=== PATIENT | female | born 1930 | race Caucasian/White ===

== ENCOUNTER 2018-05-04 07:36 | Inpatient (IN) | payer OTHER ==
[~2018-05-04] VITALS: Ht 152.4 cm; Wt 64.0 kg
[~2018-05-04 07:36] MED LIST: AMOCLA875 PO
[2018-05-04] MEDS ORDERED: SYNTHROID25 MCG PO (08:02)
[2018-05-04] MEDS ORDERED: FURO40 PO (08:02)
[2018-05-04] MEDS ORDERED: K-Dur20 MEQ PO (08:02)
[2018-05-04] MEDS ORDERED: DONE10 PO (08:03)
[2018-05-04] MEDS ORDERED: BUPR150ER PO (08:03)
[2018-05-04] MEDS ORDERED: CHOL10002 PO (08:03)
[2018-05-04] MEDS ORDERED: Lopressor 25 mg25 MG PO (08:03)
[2018-05-04] MEDS ORDERED: WARF2.5 PO (08:03)
[2018-05-04] MEDS ORDERED: METO50 PO (08:04)
[2018-05-04 08:37] LABS: BASOPHILS ABSOLUTE AUTO 0.02 K/mm3 (0.00-0.23); BASOPHILS PERCENT AUTO 0 % (0-2); EOSINOPHILS PERCENT AUTO 0 % (0-6); Hematocrit 41.2 % (33.0-51.0); Hemoglobin 12.7 g/dL (11.5-16.0); IMMATURE GRAN ABSOLUTE AUTO 0.04 K/mm3 (0.00-0.10); IMMATURE GRAN PERCENT AUTO 1 % (0-1); LYMPHOCYTES ABSOLUTE AUTO 0.36 K/mm3 (0.84-5.20); LYMPHOCYTES PERCENT AUTO 5 % (21-46); MONOCYTES ABSOLUTE AUTO 1.59 K/mm3 (0.16-1.47); MONOCYTES PERCENT AUTO 21 % (4-13); Mean Corpuscular HGB 31.3 pg (26.0-34.0); Mean Corpuscular HGB Conc 30.8 g/dL (31.5-36.5); Mean Corpuscular Volume 102 fL (80-100); Mean Platelet Volume 10.2 fL (9.1-12.4); NEUTROPHILS ABSOLUTE AUTO 5.71 K/mm3 (1.96-9.15); NEUTROPHILS PERCENT AUTO 74 % (41-73); Platelet Count 202 K/mm3 (150-400); RDW Coefficient Variation 18.1 % (11.7-14.2); RDW Standard Deviation 68.7 fL (35.1-46.3); Red Blood Cell Count 4.06 M/mm3 (3.80-5.20); White Blood Cell Count 7.72 K/mm3 (4.00-11.30)
[2018-05-04 09:01] LABS: Albumin, Blood 3.7 g/dL (3.4-5.0); Albumin/Globulin Ratio 1.1 (0.8-1.8); Bun/Creatinine Ratio 22.6 (12.0-20.0); Creatinine, Blood 0.97 mg/dL (0.40-1.00); Globulin, Blood 3.4 g/dL (2.2-4.0); Potassium, Blood 3.4 mmol/L (3.5-5.5); Total Protein, Blood 7.1 g/dL (6.4-8.2)
[2018-05-04 12:27] LABS: International Normalized Ratio 1.75; Prothrombin Time Results 17.6 Sec (9.7-11.5)
[2018-05-04] MEDS ORDERED: LANOXIN125 MCG PO (14:46)
--- NOTE | 2018-05-04 19:31 | NUR ---
SHIFT SUMMARY PT A NEW ADMISSION THIS AFTERNOON. PT IS ORIENTED TO SELF ONLY. PT PLEASANT AND COOPRATIVE, FOLLLOW DIRECTION. NO COMPLAINTS OF PAIN. SHORTNESS OF BREATH WITH EXERTION UP TO BSC. PT IS VERY COARSE. IV LASIX GIVEN THIS EVENING PER ORDERS. NO ACUTE DISTRESS. FAMILY AT BEDSIDE. REPORT GIVEN TO DARREN RN. BED ALARM ON FOR SAFETY.
--- NOTE | 2018-05-05 04:55 | NUR ---
NOC SHIFT SUMMARY PT HAS BEEN PLEASANT AND COOPERATIVE WITH CARE. SHE IS ORIENTED TO SELF AND SON ONLY. SHE HAS SPENT MOST OF THE NIGHT IN BED. HAS BEEN INCONTINENT OF URINE AND NEEDED ATTENDS CHANGE. LUNGS SOUND COARSE THROUGHOUT BUT PT APPEARS IN NO ACUTE DISTREDD AND IS ABLE TO SPEAK IN SENTENCES. HAS HAD PRODUCTIVE COUGH. WILL CONTINUE TO MONITOR.
[2018-05-05 05:19] LABS: Hemoglobin 12.6 g/dL (11.5-16.0); Mean Corpuscular HGB 32.2 pg (26.0-34.0); Mean Corpuscular HGB Conc 30.7 g/dL (31.5-36.5); Mean Platelet Volume 10.1 fL (9.1-12.4); Platelet Count 191 K/mm3 (150-400); RDW Coefficient Variation 18.1 % (11.7-14.2); RDW Standard Deviation 69.4 fL (35.1-46.3); Red Blood Cell Count 3.91 M/mm3 (3.80-5.20); White Blood Cell Count 8.19 K/mm3 (4.00-11.30)
[2018-05-05 05:22] LABS: Mean Corpuscular Volume 105 fL (80-100)
[2018-05-05 05:45] LABS: Bun/Creatinine Ratio 22.9 (12.0-20.0); Calcium, Blood 8.8 mg/dL (8.5-10.1); Creatinine, Blood 1.05 mg/dL (0.40-1.00); Potassium, Blood 3.4 mmol/L (3.5-5.5); Troponin I 0.093 ng/mL (0.000-0.040)
[2018-05-05 05:46] LABS: International Normalized Ratio 1.85; Prothrombin Time Results 18.5 Sec (9.7-11.5)
--- NOTE | 2018-05-05 12:03 | NUR ---
Spiritual care visit conducted. Patient was asleep with four family members bedside. I introduced myself and and the family welcomed me. I facilitated a patient/family life review, explored patient's belief system and reinforced helpful attitudes and practices. Family responded well and thanked me for the visit.
--- NOTE | 2018-05-05 16:18 | NUR ---
1433 CRITICAL PTT RECIEVED. 1434 PTT REPORTED TO Samantha BAY IN PHARMACY.
--- NOTE | 2018-05-05 17:18 | NUR ---
SHIFT SUMMARY. ALERT, ORIENTATED TO SELF AND FAMILY. PT IS PLEASANT AND COOPERATIVE, ONE ASSIST TO CHAIR. INCONTINENT. PT DENIES N/V, SOB, AND PAIN. POOR PO INTAKE EVEN WITH ENCOURAGE BY STAFF AND FAMILY. HEPARIN DRIP D/C'D TODAY. NO OTHER CHANGES.
--- NOTE | 2018-05-06 05:20 | NUR ---
Rn summary: Patient is oriented x2 with history of dementia. Son has been at bedside all shift. Pt has a murmur. Pt lungs are course with insp/exp wheezes and expiratory crackles in bases. Pt is on O2 at 2 liters. Lasix 40mg given IV at 1999 and has voided 2 med incontinent voids. Pt was given her meds whole in applesauce but she tends to chew them even though she is reminded not to. Pt has been repositioned. She has rested fairly well. Son has call light as pt is not able to use it. Bed alarm is on for safety.
[2018-05-06 05:42] LABS: International Normalized Ratio 2.6; Prothrombin Time Results 25.3 Sec (9.7-11.5)
[2018-05-06 12:39] LABS: Bun/Creatinine Ratio 22.4 (12.0-20.0); Calcium, Blood 8.3 mg/dL (8.5-10.1); Creatinine, Blood 1.07 mg/dL (0.40-1.00)
--- NOTE | 2018-05-06 16:46 | NUR ---
PATIENT ORIENTED TO SELF AND FAMILY. UP WITH 1 ASSIST TO CHAIR FOR MEALS THIS SHFT. VOIDING IN BSC WITH SOME INCONTINENCE. VSS. MAINTAINING SATS ON 2LO2. LUNGS COARSE WITH WHEEZES THROUGHOUT. SKIN INTACT. FALL PRECAUTIONS PER UNIT PROTOCOL. DENIES ANY PAIN. TAKES PILLS WHOLE WITH APPLESAUCE. TOLERATING REGULAR DIET.
--- NOTE | 2018-05-07 05:25 | NUR ---
SHIFT SUMMARY NO CHANGES TO REPORT THIS SHIFT. LUNGS REMAIN VERY COURSE WITH WHEEZES T/O. PT PLESANTLY CONFUSED. KNOWS SELF AND FAMILY. UNABLE TO TELL ME THE DATE OR WHERE SHE WAS. SHE DENIES NEEDS T/O THEN NIGHT. PT SON REMAINS AT BEDSIDE T/O THE NIGHT. ASSESSMENT UNCHANGED. WILL CONTINUE TO MONITOR AND REPORT TO ONCOMING RN.
[2018-05-07 05:29] LABS: International Normalized Ratio 3.36; Prothrombin Time Results 31.9 Sec (9.7-11.5)
[2018-05-07 05:36] LABS: Bun/Creatinine Ratio 29.5 (12.0-20.0); Calcium, Blood 8.7 mg/dL (8.5-10.1); Creatinine, Blood 0.98 mg/dL (0.40-1.00); Potassium, Blood 4.3 mmol/L (3.5-5.5)
--- NOTE | 2018-05-07 18:15 | NUR ---
NO ACUTE CHANGES THIS SHIFT, UP WITH SBA TO CHAIR. TOLERATING REGULAR DIET. VSS THIS SHIFT. TAKES PILLS WHOLE WITH APPLESAUCE. FAMILY AT BEDSIDE THROUGHOUT THE SHIFT. FALL PRECAUTIONS PER UNIT PROTOCOL. 2L O2 TO MAINTAIN SATS. ORIENTED TO SELF AND FAMILY ONLY, ABLE TO FOLLOW SIMPLE COMMANDS. CONT/INCONTINENT, WEARING ATTENDS.
--- NOTE | 2018-05-08 04:12 | NUR ---
SHIFT SUMMARY NO ACUTE CHANGES. LUNGS REMAIN VERY COURSE AND WHEEZY T/O. PT DENIES PAIN, OR SOB AT REST. HOWEVER, GETS VERY SOB WITH ANY EXERTION. PT HAS BEEN UP AND OUT OF BED AND HAS DONE WELL USING THE FWW TO AND FROM THE BATHROOM WITH 1 PA. PT SON AT BEDSIDE T/O THE NIGHT. ASSESSMENT UNCHANGED. WILL CONTINUE TO MONITOR AND REPORT TO ONCOMING RN.
[2018-05-08 05:44] LABS: International Normalized Ratio 2.85; Prothrombin Time Results 27.5 Sec (9.7-11.5)
--- NOTE | 2018-05-08 09:58 | NUR ---
permission to provide care Student nurse Becca Cruz received permission to care on 05-08-18 to provide care on 05-09-18 Becca Cruz
--- NOTE | 2018-05-08 13:37 | NUR ---
Spiritual care visit conducted. Patient was sitting in a chair eating lunch when I entered the room. Patient is known to me from a prior visit. I talked with patient about her health, her yung and her family. I reinfornced helpful attitudes and practices, explored sources of dignity and provided prayer. Patient and family that were present bedside responded well to all interventions. Patient expressed gratitude for my visit and showed signs of an elevated mood.
--- NOTE | 2018-05-08 17:25 | NUR ---
SHIFT SUMMARY NO ACUTE CHANGES NOTED. VOIDING WELL. 1 PERSON TO BATHROOM. FAMILY IN THE ROOM DURING THE DAY.
--- NOTE | 2018-05-09 03:33 | NUR ---
SHIFT SUMMARY PT RESTING QUIETLY IN BED, DURING SHIFT REPORT. FAMILY AT BS. PT APPEARS WEAK AND SOB WITH ANY EXERTION. COARSE, NPC FOR THE MOST PART. FAMILY REQUESTING RT TX DURING REPORT. RT TO RM FOR TX. PT SLEEPY AFTER DINNER, WOKE FOR HS MEDS, THEN URGENTLY NEEDING TO GO TO [facility]. "WHEN I GOT TO GO, I NEED TO GO". PT HAS SOME STRESS INCONTINENCE AND ALSO FIXATES ON THINGS. PT ASSISTED TO [facility] W/1P SBA USING FWW. PT THEN WANTING TO SIT IN [facility] FOR A WHILE, PLAYING WITH TOILET PAPER. PT'S SON REPORTED THAT SHE WILL DO THAT AT HOME AND JUST SIT ON THE TOILET FOR AN HOUR THOUGH FINISHED, PLAYING WITH THE TOILET PAPER. PT TOLERATED AMBULATING TO [facility], THOUGH SOME SOB WHEN RETURNING TO BED. LUNGS T/O WITH WHEEZES AND RHONCHI THRU OUT. PER SHIFT REPORT, PT LUNGS IMPROVING. HX OF DEMENTIA, CKD, HTN, ANXIETY, A-FIB AND A-FLUTTER ON COUMADIN. DENIED PAIN. CALL LT IN REACH. PT'S SON STAYS AT BS TO CALL FOR NEEDS. MORE FAMILY HERE AT HS, BUT PT'S SON DID NOT LET THEM IN TO SEE PT.
[2018-05-09 05:24] LABS: BASOPHILS ABSOLUTE AUTO 0.04 K/mm3 (0.00-0.23); BASOPHILS PERCENT AUTO 1 % (0-2); EOSINOPHILS ABSOLUTE AUTO 0.23 K/mm3 (0.00-0.68); EOSINOPHILS PERCENT AUTO 4 % (0-6); Hemoglobin 11.6 g/dL (11.5-16.0); IMMATURE GRAN ABSOLUTE AUTO 0.02 K/mm3 (0.00-0.10); IMMATURE GRAN PERCENT AUTO 0 % (0-1); LYMPHOCYTES PERCENT AUTO 20 % (21-46); MONOCYTES ABSOLUTE AUTO 1.07 K/mm3 (0.16-1.47); MONOCYTES PERCENT AUTO 20 % (4-13); Mean Corpuscular HGB 31.9 pg (26.0-34.0); Mean Corpuscular HGB Conc 30.5 g/dL (31.5-36.5); Mean Corpuscular Volume 104 fL (80-100); Mean Platelet Volume 10.5 fL (9.1-12.4); NEUTROPHILS ABSOLUTE AUTO 3.04 K/mm3 (1.96-9.15); NEUTROPHILS PERCENT AUTO 55 % (41-73); Platelet Count 156 K/mm3 (150-400); RDW Coefficient Variation 17.8 % (11.7-14.2); RDW Standard Deviation 68.7 fL (35.1-46.3); Red Blood Cell Count 3.64 M/mm3 (3.80-5.20)
[2018-05-09 05:38] LABS: International Normalized Ratio 2.32; Prothrombin Time Results 22.8 Sec (9.7-11.5)
[2018-05-09 06:06] LABS: Albumin, Blood 3.1 g/dL (3.4-5.0); Anion Gap 8 mmol/L (6-16); Blood Urea Nitrogen 31 mg/dL (8-24); Bun/Creatinine Ratio 26.1 (12.0-20.0); CO2, Blood 30 mmol/L (21-32); Calcium, Blood 8.7 mg/dL (8.5-10.1); Chloride, Blood 106 mmol/L (98-108); Creatinine, Blood 1.19 mg/dL (0.40-1.00); Glomerular Filtration Rate 45 (60-); Glucose, Blood 82 mg/dL (70-99); Phosphorus, Blood 3.1 mg/dL (2.5-4.9); Sodium, Blood 144 mmol/L (136-145)
--- NOTE | 2018-05-09 17:15 | NUR ---
Initial Pal Care visit. Pt is lying in bed with hob elevated, in and out of sleep. She has an audible exp wheeze noted. Katelynn or DIL at bedside states breathing treatments have helped with wheeze and sob. Pt appears sob at rest. Family member reports they are pursuing tx for pt's critical aortic stenosis and that they met with Dr Walter at his office yesterday for a second opinion regarding a TAVR procedure. Family understood Dr Wlater to be very encouraging and they believe that under his care he will be able to decrease Jena's pulmonary htn, making her eligible to pursue a TAVR procedure. Family is not interested in discussing hospice. They feel Jena's other health issues including significant dementia shouldn't be considered a deterrent in seeking curative treatment. We discussed s/s management for her dyspnea and activity intolerance. When pt awake she denies pain or distress. She is pleasantly very confused and states she is there to help her family. "I do what I can to help". I did not note any nonverbal indicators of pain, anxiety or agitation at this time. Pt drifted back to sleep easily with soft conversation around her. Son arrived half way thru my visit and had the same guarded manner initially when I introduced myself but was receptive to conversation about how we can support his mom and family and conversations about what pt enjoys at home. Pal care will remain available to assist with s/s management or advanced care planning as indicated/requested further.
--- NOTE | 2018-05-09 17:22 | NUR ---
Pt says she is feeling better and declined any needs. she was pleasantly dismissive of pastoral care. I will remain available.
[2018-05-10 05:23] LABS: International Normalized Ratio 2.24; Prothrombin Time Results 22.1 Sec (9.7-11.5)
--- NOTE | 2018-05-10 05:27 | NUR ---
DIAMOND CUTTER SUMMARY NO ACUTE CHANGES THIS SHIFT. PT AAOX2, MAINLY TO SELF AND SON BUT IS PLEASANT AND FOLLOWS DIRECTION. 1 PERSON ASSIST TO BATHROOM WITH FWW. PT DENIES PAIN. LUNGS COARSE BUT PT'S SON REPORTS HER BREATHING IS MUCH IMPROVED COMPARED TO WHEN PT WAS ADMITTED. PULMONOLGY CONSULT CALLED IN FOR DR ALARCON FOR LATER TODAY. VSS, WILL CONTINUE TO MONITOR.
[2018-05-10 05:38] LABS: Albumin, Blood 3.2 g/dL (3.4-5.0); Anion Gap 6 mmol/L (6-16); Blood Urea Nitrogen 30 mg/dL (8-24); Bun/Creatinine Ratio 29.1 (12.0-20.0); CO2, Blood 29 mmol/L (21-32); Calcium, Blood 8.8 mg/dL (8.5-10.1); Chloride, Blood 106 mmol/L (98-108); Creatinine, Blood 1.03 mg/dL (0.40-1.00); Glomerular Filtration Rate 54 (60-); Glucose, Blood 109 mg/dL (70-99); Phosphorus, Blood 2.8 mg/dL (2.5-4.9); Potassium, Blood 4.8 mmol/L (3.5-5.5); Sodium, Blood 141 mmol/L (136-145)
--- NOTE | 2018-05-10 07:11 | NUR ---
PATIENT GAVE PERMISSION TO STUDENT TO PROVIDE CARE ON 05/10/28.
--- NOTE | 2018-05-11 03:56 | NUR ---
SHIFT SUMMARY PT PLEASANTLY CONFUSED. RAMBLES ON SWEETLY ABOUT UNASSOCIATED TOPICS. DAUGHTER IN LAW AT BEDSIDE THROUGHOUT THE NIGHT. ASSISTS PT WITH NEEDS. PT AMBULATES 1 ASSIST W/ FWW. MOSTLY STEADY ON HER FEET. MINIMAL SOB W/ ACTIVITY BUT TIRES EASY. LUNG SOUNDS VERY COARSE AND WHEEZY. SLEEP STUDY STARTED THIS EVENING. CONTINUES ON AT THIS TIME. UNSURE OF RESULTS. WHEN CHECKED PT FREQUENTLY IN THE MID 80'S ON RA. SPOKE TO RT WHO STATED THAT DR. ALARCON WAS OKAY WITH PT'S SATS DROPPING TO THE LOW 80'S ON RA DURING THE STUDY. O2 SATS MONITORED BY RT THROUGHOUT THE NIGHT. PT DENIES PAIN OR DISCOMFORT. SLEPT OFF AND ON THROUGHOUT THE NIGHT. OTHERWISE NO ACUTE CHANGES. WILL CONTINUE TO MONITOR.
[2018-05-11 05:18] LABS: International Normalized Ratio 2.43; Prothrombin Time Results 23.8 Sec (9.7-11.5)
--- NOTE | 2018-05-11 18:46 | NUR ---
SHIFT SUMMARY NO ACUTE CHANGES THIS SHIFT. PT AMBULATED IN ROOM X2 AND BECAME VERY SHORT OF BREATH AND WEAK. PT VERY TIRED AFTER BOTH TIMES AND TOOK A NAP AFTER. NO COMPLAINTS OF PAIN THIS SHIFT. FAMILY AT BEDSIDE THROUGH OUT THE SHIFT. PLANS FOR POSSIBLE DISCHARGE HOME IN THE NEXT DAY OR TWO. WILL CONTINUE TO MONITOR AND REPORT TO ONCOMING RN.
--- NOTE | 2018-05-12 04:33 | NUR ---
SHIFT SUMMARY PT PLEASANTLY CONFUSED. SON AT BEDSIDE THROUGH MOST OF THE NIGHT. PT SLEPT WELL THIS EVENING. UP W/ 1 ASSIST AND FWW. SON ASSISTS PT TO THE RESTROOM AND BACK TO BED. PT GETS VERY TIRED WITH AMBULATION. LUNG SOUNDS VERY COARSE AND WHEEZY, WORSENING WITH EXERTION. CONTINUES ON 1.5 L O2 NC. O2 SATS MID TO HIGH 90'S. VSS. OTHERWISE NO ACUTE CHANGES. WILL CONTINUE TO MONITOR AND REPORT TO DAY RN.
[2018-05-12 05:54] LABS: International Normalized Ratio 2.54; Prothrombin Time Results 24.7 Sec (9.7-11.5)
--- NOTE | 2018-05-12 09:30 | NUR ---
PT PLEASANT CONFUSED. ORIENTED TO SELF FAM AND FOLL BASIC DIRECTIONS. H/R REG, NO MURMER NOTED. NO TELE. FAM STATS HX AFIB. LUNGS COARSE T/O. ON 1.5L N/C. RESP EASY, UNALBORED. BT HYPO. LAST BM YEST PER FAM. VOIDS ATTENDS. INCONT. BED IN LOW POSITION, CALL LITE IN REACH. BED ALARM ON FOR SAFETY. FAM AT BEDSIDE.
[2018-05-12] MEDS ORDERED: PRED20 PO (12:22)
--- NOTE | 2018-05-12 14:24 | NUR ---
PT OUT DOOR BY TRANSPORT
== END 2018-05-12 13:28 | disposition home or self-care (01) | DRG 291 ==
LOC: ER 07:36 → ERHOLD 10:16 → MEDS 10:16 → ENPENDDIS 05-12 12:54 → MEDS 05-12 13:28
PROVIDERS: Emergency Medicine; Family Medicine; Pharmacist; ADMIT Hospitalist
DX: I13.0 Hypertensive heart and chronic kidney disease with heart failure and stage 1 through stage 4 chronic kidney disease, or unspecified chronic kidney disease (principal); J96.01 Acute respiratory failure with hypoxia; I50.43 Acute on chronic combined systolic (congestive) and diastolic (congestive) heart failure; I27.20 Pulmonary hypertension, unspecified; N18.3 Chronic kidney disease, stage 3 (moderate); I48.0 Paroxysmal atrial fibrillation; Z66 Do not resuscitate; I35.0 Nonrheumatic aortic (valve) stenosis; F41.9 Anxiety disorder, unspecified; E03.9 Hypothyroidism, unspecified; E87.6 Hypokalemia; G30.9 Alzheimer's disease, unspecified; F02.80 Dementia in other diseases classified elsewhere, unspecified severity, without behavioral disturbance, psychotic disturbance, mood disturbance, and anxiety; I95.9 Hypotension, unspecified; Z95.2 Presence of prosthetic heart valve; Z88.8 Allergy status to other drugs, medicaments and biological substances; Z79.01 Long term (current) use of anticoagulants; Z79.899 Other long term (current) drug therapy
CPT/HCPCS: 36415; 71046; 80048; 80053; 80069; 83605; 83880; 84145; 84484; 85025; 85027; 85610; 85730; 87040; 87070; 87081; 87205; 90686; 93005; 93010; 94640; 94760; 94761; 94762; 96374; 99285-25; J1644; J1940